=== PATIENT | female | born 1965 | race American Indian/Alaskan Native ===

== ENCOUNTER 2016-10-26 20:07 | Emergency (ER) | payer SELFPAY ==
[2016-10-26] MEDS ORDERED: VALIUM PO ONE (23:29)
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
[2016-10-27] MEDS ORDERED: NORCO 5/325 PO ONE (00:56)
[2016-10-27 02:46] VITALS: BP 117/68
== END 2016-10-27 02:00 | disposition home or self-care (01) ==
LOC: ED 20:07
DX: M54.5 Low back pain (principal); V49.49XA Driver injured in collision with other motor vehicles in traffic accident, initial encounter; Y93.9 Activity, unspecified; Y92.9 Unspecified place or not applicable; Y99.9 Unspecified external cause status
CPT/HCPCS: 70450; 99283